=== PATIENT | female | born 1975 | race Caucasian/White ===

== ENCOUNTER → 2016-07-14 | Outpatient (CLI) | payer MEDICARE, MEDICAID ==
[~2016-07-14] MED LIST: AMBIEN; BSP10T PO; DVL500TEC PO; FLUO10CA19 PO; FLUO40CA PO; GABA300T PO; HYDR-2858 PO; HYDR50CA PO; IBP600T1 PO; LEVO75TA57 PO; LMT25T PO; LORA0.5T PO; NAPR-243 PO; NITR-65 PO; OXYC-12 PO; PREN1TAB39 PO; SULF1TAB38 PO; TPR100T PO; TPR25T; TRAM-21 PO; TRL300 PO; TRM50T PO; ZLP5T PO; ZPR40C PO
--- NOTE | 2016-07-14 15:47 | Diagnostic Imaging Report ---
INDICATION: Back pain. FINDINGS: There is compensatory curvature of the lumbar spine convex to left. Vertebral body heights and alignment appear normal. Disc spaces are well maintained. IMPRESSION: Slight scoliotic curvature of the lumbar spine. No acute abnormalities seen. Dictated by: Dictated on workstation # [id number]
--- NOTE | 2016-07-14 15:48 | Diagnostic Imaging Report ---
INDICATION: Back pain. Thoracic spine. FINDINGS: AP and lateral views of the thoracic spine show normal vertebral body height and alignment. There is a very slight scoliotic curvature of the lower thoracic spine convex to the right. Disc spaces are fairly well preserved. IMPRESSION: Mild scoliosis of the thoracic spine. No acute abnormality seen. Dictated by: Dictated on workstation # [id number]
== END ==
LOC: RAD 14:48
PROVIDERS: ATTEND Family Medicine
DX: M41.84 Other forms of scoliosis, thoracic region (principal); M54.5 Low back pain
CPT/HCPCS: 72072; 72100

== ENCOUNTER → 2016-07-29 | Outpatient (CLI) | payer BC, MEDICAID ==
--- NOTE | 2016-07-29 15:37 | Diagnostic Imaging Report ---
INDICATION: Pelvic pain. Transabdominal and endovaginal pelvic sonogram. FINDINGS: Evaluation was done with transabdominal and endovaginal scanning. The uterus measures 6.4 x 5.1 x 4.5 cm. It is retroflexed. Endometrium measures 1 cm. Myometrium and endometrium both appear normal. Neither ovary can be sonographically located with either transabdominal or endovaginal scanning. IMPRESSION: Normal appearing uterus. Neither ovary can be sonographically located. Dictated by: Dictated on workstation # [id number]
== END ==
LOC: RAD 14:27
PROVIDERS: ATTEND Family Medicine
DX: R10.2 Pelvic and perineal pain (principal); M54.5 Low back pain
CPT/HCPCS: 76830; 76856